=== PATIENT | male | born 2000 | race Caucasian/White ===

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

== ENCOUNTER 2021-01-19 22:06 | Emergency (ER) | payer BC ==
[~2021-01-19] VITALS: Ht 177.8 cm; Wt 63.6 kg
[~2021-01-19 22:06] MED LIST changes: -ALBU6.7H INH; +ALBU6.7H9 INH
[2021-01-19] MEDS ORDERED: mag hydrox/Alum hydrox/simeth 30ml oral suspension PO ONE (23:40)
[2021-01-19] MEDS ORDERED: famotidine 20mg tablet PO ONE (23:40)
[2021-01-19 23:51] VITALS: BP 139/85
== END 2021-01-19 23:45 | disposition home or self-care (01) ==
LOC: ER 22:07
DX: R06.02 Shortness of breath (principal); Z79.899 Other long term (current) drug therapy
CPT/HCPCS: 71045; 93005; 99283

== ENCOUNTER 2021-02-24 21:51 | Emergency (ER) | payer BC ==
[~2021-02-24] VITALS: Ht 175.3 cm; Wt 63.6 kg
--- NOTE | 2021-02-24 22:26 | NUR ---
PT NOW COMPLAINS OF RIGHT WRIST PAIN. CMS INTACT
--- NOTE | 2021-02-24 22:30 | NUR ---
PT'S FATHER MAGALY [phone]
[2021-02-24] MEDS ORDERED: LIDOcaine 1% W/epiNEPHrine 1:200,000 10ml vial IJ ONE (22:55)
[2021-02-24] MEDS ORDERED: TETanus/Pertussis (Acell)/Diphther VAC/PF (Tdap-Adult) 0.5ml syringe IMVAC ONE (22:55)
--- NOTE | 2021-02-24 23:13 | NUR ---
BLOOD SUGAR 98
--- NOTE | 2021-02-25 02:43 | NUR ---
pt resting in bed with friend at bedside. pt appears less intoxicated
[2021-02-25 05:56] VITALS: BP 118/80
== END 2021-02-25 05:57 | disposition home or self-care (01) ==
LOC: ER 21:52
DX: S01.81XA Laceration without foreign body of other part of head, initial encounter (principal); S12.591A Other nondisplaced fracture of sixth cervical vertebra, initial encounter for closed fracture; F10.929 Alcohol use, unspecified with intoxication, unspecified; I10 Essential (primary) hypertension; W19.XXXA Unspecified fall, initial encounter; Y93.89 Activity, other specified; Y92.89 Other specified places as the place of occurrence of the external cause; Y99.8 Other external cause status
CPT/HCPCS: 12011; 70450; 72125; 73110; 82948; 90471; 90715; 99285

== ENCOUNTER 2021-04-27 22:08 | Emergency (ER) | payer BC ==
[~2021-04-27] VITALS: Ht 177.8 cm; Wt 65.9 kg
[2021-04-27 22:25] VITALS: BP 132/73
[2021-04-27 23:37] LABS: BASOPHILS % (AUTO) 0.9 % (0-1); EOSINOPHILS # (AUTO) 0.2 X10'3 (0-0.9); EOSINOPHILS % (AUTO) 3.3 % (0-6); HEMATOCRIT 48.7 % (42.0-52.0); LYMPHOCYTES # (AUTO) 2.2 X10'3 (1.1-4.8); LYMPHOCYTES % (AUTO) 40.3 % (21-51); MEAN CORPUSCULAR HEMOGLOBIN 32.6 PG (27.0-31.0); MEAN CORPUSCULAR HGB CONC 34.8 g/dL (33.0-36.5); MEAN CORPUSCULAR VOLUME 93.7 FL (78-98); MEAN PLATELET VOLUME 7.1 FL (7.4-10.4); MONOCYTES # (AUTO) 0.5 X10'3 (0-0.9); MONOCYTES % (AUTO) 8.3 % (2-12); NEUTROPHILS # (AUTO) 2.6 X10'3 (1.8-7.7); NEUTROPHILS % (AUTO) 47.2 % (42-75); PLATELET COUNT 269 X10'3 (140-440); RED CELL DISTRIBUTION WIDTH 12.6 % (11.5-14.5); WHITE BLOOD COUNT 5.5 X10'3 (4.5-11.0)
[2021-04-27 23:44] LABS: ALANINE AMINOTRANSFERASE 17 U/L (12-78); ALBUMIN 4.1 G/DL (3.4-5.0); ALBUMIN/GLOBULIN RATIO 1.2 (1.1-1.5); ALKALINE PHOSPHATASE 109 IU/L (20-180); ANION GAP 12 (8-16); ASPARTATE AMINO TRANSFERASE 19 U/L (10-37); BILIRUBIN,TOTAL 0.4 MG/DL (0.1-1.0); BLOOD UREA NITROGEN 5 MG/DL (7-18); BUN/CREATININE RATIO 6.5 (5.4-32.0); CALCIUM 8.1 MG/DL (8.5-10.1); CHLORIDE 106 MMOL/L (99-107); CREATININE 0.77 MG/DL (0.60-1.10); ETHANOL 0.215 GM/DL (0.0-0.010); POTASSIUM 3.4 MMOL/L (3.5-5.1); SODIUM 145 MMOL/L (135-145); TOTAL CARBON DIOXIDE 26.8 MMOL/L (24-32); TOTAL PROTEIN 7.5 G/DL (6.4-8.2); eGFR > 90 ML/MIN
[2021-04-27 23:47] LABS: GLUCOSE 107 MG/DL (70-104)
== END 2021-04-28 03:23 | disposition home or self-care (01) ==
LOC: ER 22:09
DX: F10.129 Alcohol abuse with intoxication, unspecified (principal); R55 Syncope and collapse; R42 Dizziness and giddiness; R53.1 Weakness; G56.32 Lesion of radial nerve, left upper limb; I10 Essential (primary) hypertension; Z72.89 Other problems related to lifestyle; Z79.899 Other long term (current) drug therapy; Y90.7 Blood alcohol level of 200-239 mg/100 ml
CPT/HCPCS: 29125; 36415; 70450; 80053; 80320; 85025; 99284

== ENCOUNTER 2022-03-26 13:53 | Emergency (ER) | payer BC ==
[~2022-03-26] VITALS: Ht 177.8 cm; Wt 67.2 kg
[2022-03-26 14:50] VITALS: BP 126/84
== END 2022-03-26 19:30 | disposition left against medical advice (07) ==
LOC: ER 13:53
DX: R31.9 Hematuria, unspecified (principal); Z53.21 Procedure and treatment not carried out due to patient leaving prior to being seen by health care provider

== ENCOUNTER 2022-09-28 05:40 | Emergency (ER) | payer BC ==
[~2022-09-28] VITALS: Ht 177.8 cm; Wt 72.0 kg
[~2022-09-28 05:40] MED LIST changes: +ALBU6.7H14 INH; -ALBU6.7H9 INH
[2022-09-28 05:44] VITALS: BP 114/82
== END 2022-09-28 07:11 | disposition home or self-care (01) ==
LOC: ER 05:41
DX: S60.221A Contusion of right hand, initial encounter (principal); I10 Essential (primary) hypertension; W22.01XA Walked into wall, initial encounter; Y93.89 Activity, other specified; Y92.89 Other specified places as the place of occurrence of the external cause; Y99.8 Other external cause status
CPT/HCPCS: 73130; 99283

== ENCOUNTER 2024-01-28 22:19 | Emergency (ER) | payer BC ==
[~2024-01-28] VITALS: Ht 177.8 cm; Wt 68.2 kg
[2024-01-28 22:49] VITALS: BP 136/80; PULSE 91; TEMP 98.9; O2SAT 99
[2024-01-29 00:16] VITALS: RESP 18
[2024-01-29] MEDS: ibuprofen tablet 400 MG TABLET PO ONE (00:28)
[2024-01-29] MEDS: acetaminophen 325mg tablet PO ONE (00:28)
[2024-01-29 00:36] LABS: BASOPHILS # (AUTO) 0.1 X10'3 (0-0.2); BASOPHILS % (AUTO) 0.6 % (0-1); EOSINOPHILS # (AUTO) 0.4 X10'3 (0-0.9); EOSINOPHILS % (AUTO) 4.4 % (0-6); HEMATOCRIT 45.9 % (42.0-52.0); LYMPHOCYTES # (AUTO) 2.5 X10'3 (1.1-4.8); LYMPHOCYTES % (AUTO) 28.2 % (21-51); MEAN CORPUSCULAR HEMOGLOBIN 31.7 PG (27.0-31.0); MEAN CORPUSCULAR VOLUME 90.7 FL (78-98); MEAN PLATELET VOLUME 7.5 FL (7.4-10.4); NEUTROPHILS # (AUTO) 4.9 X10'3 (1.8-7.7); NEUTROPHILS % (AUTO) 55.8 % (42-75); PLATELET COUNT 252 X10'3 (140-440); RED BLOOD COUNT 5.05 X10'6 (4.70-6.10); RED CELL DISTRIBUTION WIDTH 12.5 % (11.5-14.5); WHITE BLOOD COUNT 8.9 X10'3 (4.5-11.0)
[2024-01-29 00:41] LABS: BILIRUBIN,URINE NEGATIVE (Neg); CLARITY,URINE CLEAR (Clear); COLOR,URINE YELLOW (Yellow); GLUCOSE, URINE NEGATIVE (Neg); KETONES,URINE NEGATIVE (Neg); LEUKOCYTE ESTERASE ,URINE NEGATIVE (Neg); NITRITES, URINE NEGATIVE (Neg); OCCULT BLOOD,URINE TRACE-INTACT (Neg); PH,URINE 5.5 (4.8-8.0); PROTEIN,URINE NEGATIVE (Neg); UROBILINOGEN,URINE 0.2 E.U/dL (0.2-1.0)
[2024-01-29 00:44] LABS: UA COLLECTION TYPE CLN CATCH MIDSTREAM
[2024-01-29 00:47] LABS: ALANINE AMINOTRANSFERASE 16 U/L (12-78); ALBUMIN/GLOBULIN RATIO 1.1 (1.1-1.5); ALKALINE PHOSPHATASE 90 IU/L (46-116); ANION GAP 5 (8-16); ASPARTATE AMINO TRANSFERASE 14 U/L (10-37); BILIRUBIN,TOTAL 0.6 MG/DL (0.1-1.0); BLOOD UREA NITROGEN 12 MG/DL (7-18); BUN/CREATININE RATIO 14.3 (10.0-20.0); CALCIUM 8.8 MG/DL (8.5-10.1); CHLORIDE 104 MMOL/L (99-107); CREATININE 0.84 MG/DL (0.60-1.10); GLUCOSE 87 MG/DL (70-104); LIPASE 68 U/L (16-77); POTASSIUM 3.4 MMOL/L (3.5-5.1); SODIUM 140 MMOL/L (135-145); TOTAL CARBON DIOXIDE 30.8 MMOL/L (24-32); TOTAL PROTEIN 7.7 G/DL (6.4-8.2); eCRCL 133 ML/MIN; eGFR > 90 ML/MIN
[2024-01-29 00:48] LABS: BACTERIA,URINE NONE SEEN /HPF (Neg); MUCUS STRANDS NONE SEEN /LPF (Neg); RBC,URINE 0-2 /HPF (0-2); SQUAMOUS EPITHELIAL CELL,UR FEW /LPF (FEW); WBC,URINE 0-4 /HPF (0-4)
[2024-01-29] MEDS ORDERED: BISA-78 PO (01:06)
== END 2024-01-29 01:22 | disposition home or self-care (01) ==
LOC: ER 22:20
DX: K59.00 Constipation, unspecified (principal); M54.50 Low back pain, unspecified; I10 Essential (primary) hypertension; Z72.89 Other problems related to lifestyle; Z79.899 Other long term (current) drug therapy
CPT/HCPCS: 36415; 80053; 81001; 83690; 85025; 99283